=== PATIENT | female | born 2000 | race Caucasian/White ===

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

== ENCOUNTER 2018-03-12 21:17 | Emergency (ER) | payer OTHER ==
[~2018-03-12] VITALS: Ht 152.4 cm; Wt 56.7 kg
[~2018-03-12 21:17] MED LIST changes: +ANAPROX DS550 MG PO; +CLINDAMYCIN HC300 MG PO
[2018-03-12 21:56] LABS: BASO % 0.4 % (0.0-1.0); EOS # 0.1 10*3/uL (0.0-0.4); EOS % 0.7 % (1.0-4.0); HEMATOCRIT 41.2 % (37.0-47.0); HEMOGLOBIN 13.6 g/dl (12.0-16.0); LYMPH % 18.9 % (27.0-41.0); MEAN CELL VOLUME 92.2 fl (81.0-99.0); MEAN CORPUSCULAR HGB 30.4 pg (27.0-31.0); MEAN PLATELET VOLUME 10.4 fl (9.6-12.3); MONO # 0.6 10*3/uL (0.1-1.0); MONO % 5.2 % (3.0-9.0); NEUT # 8.1 10*3/uL (2.3-7.9); NEUT % 74.4 % (47.0-73.0); PLATELET COUNT AUTOMATED 186 10*3/uL (130-400); RED BLOOD COUNT 4.47 10*6/uL (4.10-5.10); RED CELL DISTRI WIDTH 12.6 % (0-14.5); WHITE BLOOD COUNT 10.8 10*3/uL (4.8-10.8)
[2018-03-12 22:12] LABS: ALBUMIN 4.5 gm/dl (3.1-4.5); ALKALINE PHOSPHATASE 35 U/L (45-117); BUN 15 mg/dl (7-24); CHLORIDE 106 mmol/L (98-107); CREATININE 0.85 mg/dL (0.55-1.02); POTASSIUM 3.5 mmol/L (3.5-5.1); SGOT/AST 16 IU/L (3-35); SGPT/ALT 22 U/L (12-78); SODIUM 140 mmol/L (136-145); TOTAL PROTEIN 7.9 gm/dL (6.4-8.2)
[2018-03-12 22:18] LABS: BETA-HCG, QUANT < 1.0 mIU/mL (1-3)
== END 2018-03-12 23:22 | disposition home or self-care (01) ==
LOC: ED 21:17
PROVIDERS: Student in an Organized Health Care Education/Training Program
DX: R51 Headache (principal); Z88.5 Allergy status to narcotic agent

== ENCOUNTER 2018-04-24 13:43 | Emergency (ER) | payer OTHER ==
[~2018-04-24] VITALS: Ht 165.1 cm; Wt 56.7 kg
[2018-04-24] MEDS ORDERED: SKYLA1 EACH IY (14:02)
[2018-04-24] MEDS ORDERED: NAPROSYN500 MG PO (15:51)
== END 2018-04-24 15:53 | disposition home or self-care (01) ==
LOC: ED 13:43
DX: S62.642A Nondisplaced fracture of proximal phalanx of right middle finger, initial encounter for closed fracture (principal); F17.200 Nicotine dependence, unspecified, uncomplicated; Z88.8 Allergy status to other drugs, medicaments and biological substances; W23.0XXA Caught, crushed, jammed, or pinched between moving objects, initial encounter; Y93.89 Activity, other specified; Y92.89 Other specified places as the place of occurrence of the external cause; Y99.8 Other external cause status

== ENCOUNTER 2019-05-01 17:47 | Emergency (ER) | payer OTHER ==
[~2019-05-01] VITALS: Ht 162.5 cm; Wt 45.4 kg
[~2019-05-01 17:47] MED LIST changes: +SKYLA1 EACH IY
[2019-05-01] MEDS ORDERED: IBUPROFEN600 MG PO (19:41)
[2019-05-01] MEDS ORDERED: AMOXICILLIN500 M2 PO (19:41)
== END 2019-05-01 19:52 | disposition home or self-care (01) ==
LOC: ED 17:47
DX: J02.0 Streptococcal pharyngitis (principal); Z88.6 Allergy status to analgesic agent

== ENCOUNTER 2019-06-11 16:09 | Emergency (ER) | payer OTHER ==
[~2019-06-11] VITALS: Ht 152.4 cm; Wt 59.0 kg
[~2019-06-11 16:09] MED LIST changes: +AMOXICILLIN500 M2 PO; +IBUPROFEN600 MG PO
[2019-06-11] MEDS ORDERED: CEPHALEXIN500 M1 PO (16:35)
== END 2019-06-11 17:04 | disposition home or self-care (01) ==
LOC: ED 16:09
DX: N64.4 Mastodynia (principal); N64.52 Nipple discharge; Z88.6 Allergy status to analgesic agent

== ENCOUNTER 2021-12-05 14:16 | Emergency (ER) | payer SELFPAY ==
[~2021-12-05] VITALS: Ht 165.1 cm; Wt 63.5 kg
[~2021-12-05 14:16] MED LIST changes: +CEPHALEXIN500 M1 PO
[2021-12-05 14:45] LABS: BASO % 0.5 % (0.0-1.0); EOS # 0.1 10*3/uL (0.0-0.4); HEMATOCRIT 40.2 % (37.0-47.0); LYMPH # 1.6 10*3/uL (1.3-4.4); LYMPH % 25.5 % (27.0-41.0); MEAN CELL VOLUME 90.5 fl (81.0-99.0); MEAN CORPUSCULAR HGB 30.2 pg (27.0-31.0); MEAN CORPUSCULAR HGB CONC 33.3 g/dl (33.0-37.0); MEAN PLATELET VOLUME 10.2 fl (9.6-12.3); MONO # 0.5 10*3/uL (0.1-1.0); MONO % 8.5 % (3.0-9.0); NEUT % 63.3 % (47.0-73.0); PLATELET COUNT AUTOMATED 201 10*3/uL (130-400); RED BLOOD COUNT 4.44 10*6/uL (4.10-5.10); WHITE BLOOD COUNT 6.4 10*3/uL (4.8-10.8)
[2021-12-05 14:59] LABS: ALKALINE PHOSPHATASE 40 U/L (45-117); BUN 11 mg/dl (7-24); CHLORIDE 109 mmol/L (98-107); CREATININE 0.73 mg/dL (0.55-1.02); POTASSIUM 4.2 mmol/L (3.5-5.1); SGOT/AST 20 IU/L (3-35); SGPT/ALT 25 U/L (12-78); SODIUM 139 mmol/L (136-145); TOTAL PROTEIN 7.9 gm/dL (6.4-8.2)
[2021-12-05] MEDS ORDERED: AMOXICILLIN500 M3 PO (17:12)
== END 2021-12-05 17:15 | disposition home or self-care (01) ==
LOC: ED 14:16
PROVIDERS: Nurse Practitioner Family
DX: J02.9 Acute pharyngitis, unspecified (principal); Z20.822 Contact with and (suspected) exposure to COVID-19; F17.200 Nicotine dependence, unspecified, uncomplicated; Z88.5 Allergy status to narcotic agent